=== PATIENT | female | born 1985 | race Caucasian/White ===

== ENCOUNTER 2019-11-18 10:27 | Emergency (ER) | payer SELFPAY ==
[~2019-11-18] VITALS: Ht 165 cm; Wt 102.0 kg
[~2019-11-18 10:27] MED LIST: HYDR-3583 PO
--- OUTSIDE RECORDS SUMMARY | 2019-11-18 10:36 | XMS REPORT ---
Author Author Rand VICKERS [facility] eClinicalWorks Address Unknown Phone Unavailable Care Team Providers Care Director Of Safety Name Role Phone OSCAR VICKERS CP Unavailable Allergies, Adverse Reactions, Alerts Substance Reaction Event Type Penicillin V Potassium Info Not Available Drug Allergy Problems Problem Type Condition Code Onset Dates Condition Statu s Assessment Dental caries K02.9 Active Assessment Encounter for dental examination Z01.20 Active Medications No Known Medications Procedures Procedure Coding System Code Date BITEWING - SINGLE FILM CPT-4 D0270 Jun 07, 016 EXTRAC ERUPTED TOOTH/EXPOSED ROOT CPT-4 D7140 Jun 07, 2015 INTRAORL-PERIAPICAL 1 FILM 68217 CPT-4 D0220 Jun 07, 2015 Vital Signs Date/Time: Jun 07, 2015 Blood Pressure Diastolic 97 mmHg Blood Pressure Systolic 138 mmHg Height 65 in Results No Known Results Summary Purpose eClinicalWorks Submission
--- OUTSIDE RECORDS SUMMARY | 2019-11-18 10:36 | XMS REPORT | Continuity of Care Document ---
Author Organization Unknown Address Unknown Phone Unavailable Allergies There is no data. Medications There is no data. Problems There is no data. Procedures There is no data. Results There is no data. Encounters ACCT No. Visit Date/Time Discharge Status Pt. Type Provider Facility Loc./Unit Complaint [id number] 12/31/2018 11:00:00 12/31/2018 23:59:5 9 CLS [facility]
--- OUTSIDE RECORDS SUMMARY | 2019-11-18 10:36 | XMS REPORT ---
Author Author Rand PAYNE [facility] Address [address] [place] [address] Care Team Providers Care Him Manager Name Role Phone LIVIER PAYNE Unavailable PROBLEMS Unknown Problems ALLERGIES Unknown Allergies SOCIAL HISTORY No smoking Hx information available PLAN OF CARE VITAL SIGNS MEDICATIONS Unknown Medications RESULTS No Results PROCEDURES No Known procedures IMMUNIZATIONS No Known Immunizations
[2019-11-18] MEDS ORDERED: SULF1TAB35 PO (10:55)
--- NOTE | 2019-11-18 10:56 | ED Integumentary General ---
General Chief Complaint: Bite-Animal/Human/Insect Stated Complaint: RT KNEE SPIDER BITE Source: patient Exam Limitations: no limitations History of Present Illness Date Seen by Provider: Nov 18, 2019 Time Seen by Provider: 10:50 Initial Comments Patient presents 2 days after spider bite to her right leg. Having some pain and some swelling and redness which is developed over the past 2 days. No open sore or lesion. No other bites. Believes it was a brown recluse. Allergies and Home Medications Allergies Coded Allergies: Penicillins (Verified Allergy, Unknown, throat swelling, blistering , 11/18/19) Home Medications Hydrocodone Bit/Acetaminophen 1 Tab Tab, 1-2 EA PO Q4HR PRN, (Reported) MAY TAKE ONE OR TWO TABS BY MOUTH EVERY 4 HRS NEEDED FOR PAIN. DO NOT EXCEED 3000 MG OF TYLENOL(ACETAMINOPHEN) IN 24 HRS. Patient Home Medication List Home Medication List Reviewed: Yes Review of Systems Review of Systems Constitutional: No dizziness, No fever, No malaise, No weakness EENTM: no symptoms reported Respiratory: No cough, No short of breath Musculoskeletal: No back pain, No joint pain; muscle pain Skin: change in color, other (spider bite R leg) Past Cltunim-Pyyaie-Ddtphr Hx Past Med/Social Hx: Reviewed Nursing Past Med/Soc Hx Patient Social History Recent Foreign Travel: No Contact w/Someone Who Travel: No Past Medical History Reproductive Disorders: No Physical Exam Vital Signs Capillary Refill : General Appearance: WD/WN, no apparent distress Skin: normal color, warm/dry, other (RLE- leg: erythematous wheal w central small eschar, no ulceration. small area of proximal streaking. 2 x 4 cm area of erythema) Departure Impression Primary Impression: Spider bite wound Qualified Codes: T63.304A - Toxic effect of unspecified spider venom, undetermined, initial encounter Disposition: HOME, SELF-CARE Condition: Stable Departure-Patient Inst. Decision time for Depature: 10:55 Referrals: RIO HENSON (Family) Primary Care Physician Patient Instructions: Insect Bites and Stings (DC) Add. Discharge Instructions: see your doctor in 2 to 3 days if not improving....ER sooner if unable to see your doctor and your wound is significantly worse. All discharge instructions reviewed with patient and/or family. Voiced understanding. Scripts Sulfamethoxazole/Trimethoprim (Bactrim Ds Tablet) 1 Each Tablet 1 EACH PO BID, #10 TAB 0 Refills Prov: ETHAN AN DO 11/18/19 ETHAN AN DO Nov 18, 2019 10:56
[2019-11-18 10:59] VITALS: BP 158/97
== END 2019-11-18 11:05 | disposition home or self-care (01) ==
LOC: EDUNIT# 10:27 → ER FS 10:29
DX: T63.301A Toxic effect of unspecified spider venom, accidental (unintentional), initial encounter (principal); Z88.0 Allergy status to penicillin

== ENCOUNTER 2022-10-01 05:39 | Outpatient (CLI) | payer OTHER ==
[~2022-10-01] VITALS: Ht 165.1 cm; Wt 133.6 kg
[~2022-10-01 05:39] MED LIST changes: +SULF1TAB38 PO
[2022-10-06] MEDS ORDERED: OMEP10CA5 PO (09:26)
[2022-10-06] MEDS ORDERED: LORA10TA7 PO (09:26)
== END 2022-10-06 09:36 | disposition home or self-care (01) ==
LOC: PREOP 05:39
PROVIDERS: ATTEND Orthopaedic Surgery
DX: Z01.818 Encounter for other preprocedural examination (principal)

== ENCOUNTER 2022-10-08 07:29 | Day surgery (SDC) | payer OTHER ==
[~2022-10-08] VITALS: Ht 165.1 cm; Wt 133.6 kg
[2022-10-08] VITALS (13 sets, daily range): BP systolic 103–156; BP diastolic 64–104
[~2022-10-08 07:29] MED LIST changes: +LORA10TA7 PO; +OMEP10CA5 PO
[2022-10-08] MEDS ORDERED: oxyCODONE/APAP 5/325MG (PERCOCET 5) TABLET PO PRN (07:45)
[2022-10-08] MEDS ORDERED: LACTATED RINGERS 1,000 ML IV PRN (08:15)
[2022-10-08] MEDS ORDERED: CLINDAMYCIN 600 MG/50 ML IVPB 50 ML IV ONE (08:15)
--- NOTE | 2022-10-08 08:41 | Progress Note-Pre Operative ---
Pre-Operative Progress Note Date of Available H&P: September 23, 2022 Date H&P Reviewed: October 08, 2022 Time H&P Reviewed: 08:41 Changes from last HP none Pre-Operative Diagnosis: left rotator cuff tear LYNDA THOMPSON MD October 08, 2022 08:41
--- NOTE | 2022-10-08 08:42 | Progress Note-Post Operative ---
Post-Operative Progess Note Surgeon (s)/Contracting Officer (s) Surgeon LYNDA THOMSPON MD Contracting Officer: Dre Mueller Pre-Operative Diagnosis left rotator cuff tear Post-Operative Diagnosis left shoulder SLAP tear Procedure & Operative Findings Date of Procedure 10/08/22 Procedure Performed/Findings left shoulder arthroscopic acromioplasty and biceps tenotomy Anesthesia Type GETA Estimated Blood Loss Estimated blood loss (mL): minimal Specimens/Packing Specimens Removed none Packing: none LYNDA THOMPSON MD October 08, 2022 08:42
[2022-10-08] MEDS ORDERED: ONDA4TAB11 SL (08:45)
[2022-10-08] MEDS ORDERED: OXYC1TAB87 PO (08:46)
[2022-10-08] MEDS ORDERED: proPOfol 200 MG/20 ML (DIPRIVAN) VIAL IV ONE (08:54)
[2022-10-08] MEDS ORDERED: LIDOCAINE PF 2% 5 ML (XYLOCAINE) VIAL ONE (08:54)
[2022-10-08] MEDS ORDERED: ROCURONIUM 50 MG/5 ML (ZEMURON) VIAL IV ONE (08:54)
[2022-10-08] MEDS ORDERED: fentaNYL INJ 100 MCG/2 ML AMP ONE (08:54)
[2022-10-08] MEDS ORDERED: ONDANSETRON 4 MG/2 ML (SDV) Z0FRAN ONE ×2 (08:54→11:26)
[2022-10-08] MEDS ORDERED: MIDAZOLAM 2 MG/2 ML (VERSED) VIAL ONE (08:55)
[2022-10-08] MEDS ORDERED: BUPIVACAINE 0.25% 30 ML (SENSORCAINE) VIAL ONE (08:57)
[2022-10-08] MEDS ORDERED: morphine PF (DURAMORPH) 10 MG/10 ML AMP ONE (08:57)
[2022-10-08] MEDS ORDERED: GLYCOPYRROLATE 0.2 MG/ML (ROBINUL) 2 ML VIAL ONE (09:59)
[2022-10-08] MEDS ORDERED: NEOSTIGMINE (BLOXIVERZ ) 1 MG/1ML 10 ML VIAL ONE (09:59)
[2022-10-08] MEDS ORDERED: SEVOFLURANE (ULTANE) 15 ML INHAL SOLN ONE (10:06)
[2022-10-08] MEDS ORDERED: morphine INJ 10 MG/ML 1ML (SYR OR VIAL) IVP ONE (10:15)
[2022-10-08] MEDS ORDERED: PROMETHAZINE INJ 25 MG/ML (PHENERGAN) AMP IVP ONE (10:15)
[2022-10-08] MEDS ORDERED: MEPERIDINE (DEMEROL) INJ 50 MG/ML IVP ONE (10:15)
[2022-10-08] MEDS ORDERED: HYDROmorphone 2 MG/ML VIAL (DILAUDID) IV ONE (10:15)
[2022-10-08] MEDS ORDERED: ONDANSETRON 4 MG/2 ML (SDV) Z0FRAN IVP PRN (10:15)
--- NOTE | 2022-10-08 10:15 | Anesthesia-General Post-Op ---
General Patient Condition Mental Status/LOC: Same as Preop Cardiovascular: Satisfactory Nausea/Vomiting: Absent Respiratory: Satisfactory Pain: Controlled Complications: Absent Post Op Complications Complications None Follow Up Care/Instructions Patient Instructions None needed. Anesthesia/Patient Condition Patient Condition Patient is doing well, no complaints, stable vital signs, no apparent adverse anesthesia problems. No complications reported per nursing. WILIAM LÓPEZ CRNA October 08, 2022 10:15
[2022-10-08] MEDS ORDERED: morphine INJ 10 MG/ML 1ML (SYR OR VIAL) ONE (10:19)
[2022-10-08] MEDS ORDERED: ONDANSETRON 4 MG/2 ML (SDV) Z0FRAN IVP ONE (11:30)
--- NOTE | 2022-10-08 18:42 | OPERATIVE REPORT ---
DATE OF SERVICE: 10/08/2022 PREOPERATIVE DIAGNOSIS: Left rotator cuff tear. POSTOPERATIVE DIAGNOSIS: Left shoulder SLAP tear. PROCEDURES: 1. Left shoulder arthroscopic biceps tenotomy. 2. Left shoulder arthroscopic acromioplasty. SURGEON: Jules Bassett MD TURNTABLE WORKER: Dre Mueller, who assisted throughout the procedure and closed the incisions. ANESTHESIA: General endotracheal by Lyle Alvarenga CRNA. ESTIMATED BLOOD LOSS: Minimal. DRAINS: None. COMPLICATIONS: None. POSTOPERATIVE PLAN: Sling wear for comfort with progressive range of motion as symptoms allow. The patient was transferred to recovery room awake and in stable condition. STATEMENT OF MEDICAL NECESSITY: The patient is a 37-year-old female who injured her left shoulder at work when she was lifting. She felt and heard a pop. Ultimately, an MRI was obtained, which revealed a supraspinatus tear. She has undergone treatment with anti-inflammatories, physical therapy and home exercises without relief. Due to functional impairment and failure to improve with conservative measures, the patient elected to proceed with surgical intervention. Examination under anesthesia revealed forward elevation of 160 degrees, external rotation 90 degrees, internal rotation of 70 degrees. Arthroscopic findings demonstrated a type 2 SLAP tear. The remainder of the labrum was intact. The humeral head and glenoid demonstrated no gross chondral abnormalities. The rotator cuff was intact throughout. On the articular side, subacromial space demonstrated no tearing of the rotator cuff. On the bursal side, there was dense bursitis with [ ] anterolateral acromion. DESCRIPTION OF PROCEDURE: After risks and benefits of the procedure were discussed and questions were answered and informed consent [ ] placed on the chart, the operative site was confirmed in the preoperative holding area initialed by surgeon. The patient was then transferred to the operating room and after adequate levels of general endotracheal anesthetic were obtained, timeout was called, confirming the operative site. Examination under anesthesia was performed with the above findings noted. Left shoulder and upper extremity were prepped and draped in the usual sterile fashion. The shoulder joint was injected with 20 mL of fluid as was the subacromial space. A standard posterior portal was placed under direct visualization. Anterior portal was created in the interval between biceps, subscapularis and glenoid. The biceps anchor was carefully probed and found to be detached with a type 2 SLAP tear. This was released with arthroscopic scissors and the stump was debrided with a shaver. The scope was then redirected in the subacromial space. A lateral portal was created. Bursectomy was performed and acromion was planed to a flat type 1 acromion. Rotator cuff was carefully inspected and probed with no tearing noted. The subacromial space was copiously irrigated. Portal sites were closed with 4-0 nylon in simple interrupted fashion. The shoulder joint was injected with Duramorph. The port sites were infiltrated with plain Marcaine. A soft dressing and sling were applied. The patient was transferred to the recovery room awake and in stable condition. Job ID: [id number] DocumentID: [id number] Dictated Date: 10/08/2022 10:13:05 Communications Intern Date: 10/08/2022 18:39:00 Dictated By: JULES BASSETT MD
== END 2022-10-08 13:00 | disposition home or self-care (01) ==
LOC: SDC 07:29
PROVIDERS: ATTEND Orthopaedic Surgery
DX: S43.432A Superior glenoid labrum lesion of left shoulder, initial encounter (principal); S46.012A Strain of muscle(s) and tendon(s) of the rotator cuff of left shoulder, initial encounter; Z87.891 Personal history of nicotine dependence
CPT/HCPCS: 84703; 87081